=== PATIENT | male | born 1960 | race Caucasian/White ===

== ENCOUNTER 2020-03-23 19:40 | Emergency (ER) | payer OTHER, BC ==
[2020-03-23] MEDS ORDERED: fentaNYL 100 MCG/2 ML SDV IVPUSH ONE (19:52)
[2020-03-23] MEDS ORDERED: Ondansetron 4 MG/2 ML SDV IVPUSH ONE (19:53)
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
--- NOTE | 2020-03-23 20:36 | CT ---
Head CT Technique: Multiple axial sections through the brain were obtained. Intravenous contrast was not utilized. Comparison: No prior intracranial imaging is available. Findings: Ventricles along with basal cisterns and sulci over the convexities are within normal limits for the patient's age. No abnormal parenchymal densities are seen. No evidence of intracranial hemorrhage. No midline shift or mass effect is appreciated. Bone window settings were reviewed. No acute calvarial finding is seen. Visualized mastoid sinuses are clear. Opacified left maxillary sinus is noted. Other visualized paranasal sinuses show nothing acute. Impression: 1. Opacified left maxillary sinus most likely chronic. 2. No acute intracranial abnormality is appreciated. Diagnostic code #2 Study was dictated in MDT
--- NOTE | 2020-03-23 20:39 | CR ---
Right hand: 4 views right hand were obtained. Comparison: No prior hand exam. Tuft fracture is noted within the distal fourth finger. Joint space narrowing is scattered within the DIP joints as well as between the radius and carpal bones. No additional fracture or other abnormality is appreciated. Impression: 1. Degenerative change. 2. Tuft fracture within the distal fourth right finger. Diagnostic code #3 Study was dictated in MDT
--- NOTE | 2020-03-23 20:42 | CT ---
CT cervical spine Technique: Multiple axial sections were obtained from above C1 inferiorly to the top of T1. Reconstructed sagittal and coronal images were reviewed. Findings: Diffuse disc space narrowing is seen throughout the cervical spine. Diffuse posterior osteophytes and anterior osteophytes are seen. Posterior osteophytes are most prominent at C6-C7. Mild right sided neural foraminal stenosis is noted at C2-C3. Minimal right-sided neural foraminal stenosis is noted at C3-C4. Other neural foramina are patent. No bony central canal stenosis is seen. Mild degenerative apophyseal change is noted throughout cervical spine. No acute fracture is seen. No subluxation is appreciated. Impression: 1. Diffuse degenerative change as noted above. No acute fracture or abnormal subluxation is seen. Diagnostic code #2 Study was dictated in MDT
[2020-03-23] MEDS ORDERED: Sodium Chloride 0.9% 1,000 ML IV ONE (20:45)
[2020-03-23] MEDS ORDERED: Sodium Polystyrene Sulfonate 15 GM/60 ML Susp 60 ML Bot PO ONE (20:46)
[2020-03-23] MEDS ORDERED: Insulin Regular, Human 100 Units/ML 3 ML Vial IV ONE (20:48)
--- NOTE | 2020-03-23 20:51 | CT ---
CT chest Technique: Multiple axial sections were obtained from above the lung apices inferiorly through the lung bases. Intravenous contrast was utilized. Comparison: No prior chest imaging is available. Findings: Aorta appears without abnormality other than slight atherosclerotic calcification. Mediastinum shows no hematoma. No adenopathy is seen. Mild coronary artery calcification is noted. No pericardial thickening is seen. Several very small nodules are seen within the chest most likely relating to granulomas. No larger nodule is seen. No pulmonary contusion is seen. No pleural effusions are noted. No pneumothorax is appreciated. Bone window settings were reviewed. No discrete rib fracture is appreciated. Mild scattered degenerative change is noted within the spine. I see no discrete acute osseous finding. Impression: 1. Findings as noted above. 2. Nothing acute is appreciated on CT study of the chest. Diagnostic code #2 Study was dictated in MDT CT abdomen and pelvis Technique: Multiple axial sections were obtained from above the dome of the diaphragm inferiorly through the pubic symphysis. Delayed images were also obtained. Findings: Cyst is noted within the posterior right lobe of the liver measuring 7.3 cm. No additional abnormality is appreciated within the liver. Spleen appears within normal limits. Adrenal glands show mild hyperplasia without other abnormality. Pancreas shows no discrete abnormality. Gallbladder contains no calcified gallstones. Kidneys show bilateral hydronephrosis. Dilated ureters are seen down to the bladder. Bladder is somewhat distended with urine. Ureteral dilatation most likely relating to chronic bladder outlet obstruction. Aorta shows no aneurysm. Appendix is seen which is normal in size. No retroperitoneal adenopathy or mesenteric abnormalities are seen. No pelvic mass or adenopathy is seen. Delayed images shows no contrast within the ureters or within the bladder. Bone window settings were reviewed which shows mild scattered degenerative change within the spine. Slightly displaced fractures are seen within the right transverse processes of L1-L3. No other acute osseous finding is appreciated within the lumbar spine, pelvis or within the hips. There is superior joint space narrowing seen within both hips. Impression: 1. Fractures within the transverse process of L1-L3. 2. Bilateral hydronephrosis of both kidneys with dilated ureters down to the bladder. Bladder is mildly dilated with urine. These findings are most likely relating to change from chronic bladder outlet obstruction. 3. Other findings as noted above which are nonacute. Diagnostic code #3 Study was dictated in MDT
[2020-03-23] MEDS ORDERED: 50% Dextrose in Water 50 ML Syringe IVPUSH ONE (20:52)
--- NOTE | 2020-03-23 20:54 | CT ---
CT thoracic spine Technique: Multiple axial sections through the thoracic spine were obtained. Reconstructed coronal and sagittal images were obtained. Findings: Diffuse disc space narrowing throughout the thoracic spine is seen. Mild scattered anterior osteophytes are seen. No fracture is appreciated. No central canal stenosis or bony neural foraminal stenosis is seen. Scattered degenerative apophyseal change is seen. No abnormal subluxation is seen. Impression: 1. Diffuse degenerative change. 2. No acute fracture or abnormal subluxation is seen. Diagnostic code #2 Study was dictated in MDT
--- NOTE | 2020-03-23 20:54 | CT ---
CT lumbar spine Technique: Multiple axial sections were obtained through the lumbar spine. Reconstructed coronal and sagittal images were obtained. Findings: Slight vacuum disc phenomena is noted within the L5-S1 disc. Scattered anterior as well as anterolateral osteophytes are seen. Scattered degenerative apophyseal change is seen throughout the lumbar spine. Fracture is again noted within the transverse process of L1, L2 and L3 on the right side. No additional fracture is seen within the lumbar spine. Slight circumferential disc bulges are seen at L1-L2 through L5-S1. Right-sided neural foraminal stenosis is noted at L5-S1. Right-sided neural foraminal stenosis is also noted at L4-L5. No abnormal subluxation is seen. Impression: 1. Fractures within this right transverse process of L1, L2 and L3. 2. Degenerative change as noted above. 3. No other acute finding is appreciated. Diagnostic code #3 Study was dictated in MDT
[2020-03-23] MEDS ORDERED: ceFAZolin 1 GM in Premix Bag 1 BAG IV ONE (21:47)
--- NOTE | 2020-03-23 21:53 | CR ---
Right femur: AP and lateral views of the right femur were obtained. Joint space narrowing is seen within the right hip as well as previous surgery within the right knee. Mild medial joint space narrowing within the right knee is seen. No discrete fracture or other abnormality is appreciated. Impression: 1. Findings as noted above. 2. Nothing acute is appreciated on right femur study. Diagnostic code #2 Study was dictated in MDT
[2020-03-23] MEDS ORDERED: Sodium Chloride 0.9% 1,000 ML IV SCH (22:15)
== END 2020-03-23 23:45 ==
LOC: JD.ED 19:40
DX: S62.634A Displaced fracture of distal phalanx of right ring finger, initial encounter for closed fracture (principal); S32.019A Unspecified fracture of first lumbar vertebra, initial encounter for closed fracture; S32.029A Unspecified fracture of second lumbar vertebra, initial encounter for closed fracture; S32.049A Unspecified fracture of fourth lumbar vertebra, initial encounter for closed fracture; S00.81XA Abrasion of other part of head, initial encounter; S61.304A Unspecified open wound of right ring finger with damage to nail, initial encounter; R10.30 Lower abdominal pain, unspecified; I12.9 Hypertensive chronic kidney disease with stage 1 through stage 4 chronic kidney disease, or unspecified chronic kidney disease; N18.9 Chronic kidney disease, unspecified; N17.9 Acute kidney failure, unspecified; Z20.828 Contact with and (suspected) exposure to other viral communicable diseases; Z79.899 Other long term (current) drug therapy; Z79.84 Long term (current) use of oral hypoglycemic drugs; Z88.5 Allergy status to narcotic agent; V89.2XXA Person injured in unspecified motor-vehicle accident, traffic, initial encounter
CPT/HCPCS: 29130; 36415; 70450; 71260; 72125; 72128; 72131; 73130; 73552; 74177; 80053; 81001; 82150; 82962; 83605; 83690; 85025; 85610; 85730; 86850; 86900; 86901; 87635; 93005; 96361; 96365; 96375; 99285; A9270; J0690; J1815; J2405; J3010; J7030; U0002